=== PATIENT | female | born 1990 | race Caucasian/White ===

== ENCOUNTER 2017-02-19 15:05 | Emergency (ER) | payer BC ==
[2017-02-19 15:27] VITALS: BP 108/85
--- NOTE | 2017-02-19 16:12 | UC ---
Lower Extremity/Ankle HPI - HPI Summary HPI Summary: complaint of pain in left leg-thigh that started last night got up this morning and pain is still in her thigh feels like a staabbing intermittent pain pain is worsened by standing or ambulating on her leg resting lessens the pain no swelling in leg denies trauma denies back pain being evaluated by PCP- Dior Mena for burning pain in hamstrings rectum and vagina- had some testing done hasn't taken any medication for pain today went to chiropractor yesterday but negative exam denies OCP use, no recent travel - History of Current Complaint Chief Complaint: UCLowerExtremity Stated Complaint: THIGH/LEG PAIN Time Seen by Provider: 02/19/17 16:03 Hx Obtained From: Patient Hx Last Menstrual Period: 01/29/17 - Allergies/Home Medications Allergies/Adverse Reactions: Allergies Allergy/AdvReac Type Severity Reaction Status Date / Time No Known Allergies Allergy Verified 02/19/17 15:28 Home Medications: Home Medications NK [No Home Medications Reported] 02/19/17 [History Confirmed 02/19/17] PMH/Surg Hx/FS Hx/Imm Hx Previously Healthy: Yes Endocrine History Of: Denies: Diabetes, Thyroid Disease Cardiovascular History Of: Denies: Cardiac Disorders, Hypertension, Congestive Heart Failure Respiratory History Of: Denies: COPD, Asthma GI/ History Of: Denies: Ulcer - Surgical History Surgical History: Yes Surgery Procedure, Year, and Place: TONSILectomy, endoscopy - Family History Known Family History: Negative: Cardiac Disease, Hypertension, Diabetes - Social History Occupation: Employed Full-time Lives: With Family Alcohol Use: Occasionally Alcohol Amount: 2X/WEEK Substance Use Type: None Smoking Status (MU): Never Smoked Tobacco - Immunization History Most Recent Tetanus Shot: unknown Review of Systems Constitutional: Negative Skin: Negative Eyes: Negative ENT: Negative Respiratory: Negative Cardiovascular: Negative Gastrointestinal: Negative Genitourinary: Negative Motor: Negative Neurovascular: Negative Musculoskeletal: Myalgia Neurological: Negative Psychological: Negative All Other Systems Reviewed And Are Negative: Yes Physical Exam Triage Information Reviewed: Yes Appearance: No Pain Distress, Well-Nourished Vital Signs: Initial Vital Signs Temp 98.1 F 02/19/17 15:21 Pulse 75 02/19/17 15:21 Resp 18 02/19/17 15:21 BP 108/85 02/19/17 15:21 Pulse Ox 100 02/19/17 15:21 Vital Signs Reviewed: Yes Eyes: Positive: Conjunctiva Clear ENT: Positive: Normal ENT inspection Neck: Positive: Supple Respiratory: Positive: Lungs clear, Normal breath sounds, No respiratory distress Cardiovascular: Positive: RRR, No Murmur Abdomen Description: Positive: Nontender, Soft Bowel Sounds: Positive: Present Musculoskeletal: Positive: Other: - LLE- thighs with equal muscle tone - right leg tenderness with palpiation of adductor longus, no edema erythema or ecchymosis pulses in legs normal no swelling in calves Neurological: Positive: Alert Psychological Exam: Normal Skin Exam: Normal Lower Extremity Course/Dx - Course Course Of Treatment: exam completed. seem to be muscular in nature- will recommend NSAIDS and followup with PCP for continued evaluation. Wells criteria score for DVT -zero - Differential Dx/Diagnosis Differential Diagnosis/HQI/PQRI: DVT, Sprain, Strain Provider Diagnoses: musculoskeletal pain left leg Discharge - Discharge Plan Condition: Stable Disposition: HOME Patient Education Materials: Leg Pain (ED) Referrals: Shawn Brewer MD [Primary Care Provider] - Additional Instructions: Increase fluids and rest Take ibuprofen for pain Please call your primary care provider so their evaluation of your current condition can continue Please review your discharge instructions. If your symptoms do not improve please call your primary care provider or return to urgent care
== END 2017-02-19 16:47 | disposition home or self-care (01) ==
LOC: UCEAST 15:05
DX: M79.1 Myalgia (principal)
CPT/HCPCS: 99211; G0463

== ENCOUNTER 2019-03-16 08:59 | Emergency (ER) | payer BC ==
[2019-03-16 09:32] VITALS: BP 105/63
--- NOTE | 2019-03-16 09:57 | UC ---
UC General HPI - HPI Summary HPI Summary: Pleasant 29 yo female c/o sore, uncomfortable feeling deep in throat R>L. Did have uri with cough a couple weeks ago, this resolved. No recent fever / chills. No rash. No GI issues. No rash. Notes tender bump area on Left ant throat. - History of Current Complaint Chief Complaint: UCGeneralIllness Stated Complaint: SORE THROAT Time Seen by Provider: 03/16/19 09:52 Hx Obtained From: Patient Hx Last Menstrual Period: 02/24/19 Pain Intensity: 0 - Allergy/Home Medications Allergies/Adverse Reactions: Allergies Allergy/AdvReac Type Severity Reaction Status Date / Time latex AdvReac Mild BURNING Verified 03/16/19 09:26 RASH PMH/Surg Hx/FS Hx/Imm Hx Previously Healthy: Yes - Surgical History Surgical History: Yes Surgery Procedure, Year, and Place: TONSILECTOMY. colonscopy/ endoscopy - Family History Known Family History: Negative: Cardiac Disease, Hypertension, Diabetes - Social History Alcohol Use: Occasionally Alcohol Amount: 2X/WEEK Substance Use Type: None Smoking Status (MU): Never Smoked Tobacco - Immunization History Most Recent Tetanus Shot: unknown Review of Systems All Other Systems Reviewed And Are Negative: Yes Constitutional: Positive: Negative Skin: Positive: Negative Eyes: Positive: Negative ENT: Positive: Other - see hpi Respiratory: Positive: Other - see hpi Cardiovascular: Positive: Negative Gastrointestinal: Positive: Negative Genitourinary: Positive: Negative Motor: Positive: Negative Neurovascular: Positive: Negative Musculoskeletal: Positive: Negative Neurological: Positive: Negative Psychological: Positive: Negative Is Patient Immunocompromised?: No Physical Exam Triage Information Reviewed: Yes Appearance: Well-Appearing, Well-Nourished Vital Signs: Initial Vital Signs Temp 98.7 F 03/16/19 09:26 Pulse 72 03/16/19 09:26 Resp 16 03/16/19 09:26 BP 105/63 03/16/19 09:26 Pulse Ox 100 03/16/19 09:26 Vital Signs Reviewed: Yes Eye Exam: Normal ENT: Positive: Pharyngeal erythema Neck: Positive: Supple, Nontender, Other: - + L ant cervical lymphadenopathy, tender. + R ant cervical lymphadenopathy, a little higher up than contralateral left. Minimally tender. Trachea midline, uvula midline. Throat post red, irritated. No ousmane sores / exudates. Uvula ok, midline. Respiratory Exam: Normal Respiratory: Positive: Chest non-tender, Lungs clear, Normal breath sounds, No respiratory distress, No accessory muscle use Cardiovascular Exam: Normal Cardiovascular: Positive: RRR, No Murmur, Pulses Normal, Brisk Capillary Refill Abdominal Exam: Normal Abdomen Description: Positive: Nontender Musculoskeletal Exam: Normal Neurological Exam: Normal - grossly nonfocal Psychological Exam: Normal Skin Exam: Normal - no visible or reported rash. nondiaphoretic. Course/Dx - Course Course Of Treatment: Seen by outying Urgent care last week - reports that strep was negative. Will check throat culture. Also blood work. Thinks has had mononucleosis in the past, but will check ( reactivation?). F/U Dr. Swanson this week. Coa / tx plan reviewed. Questions answered as posed to the best of my ability. - Diagnoses Provider Diagnosis: Sore throat, Adenopathy Discharge - Sign-Out/Discharge Documenting (check all that apply): Patient Departure All imaging exams completed and their final reports reviewed: No Studies - Discharge Plan Disposition: HOME Patient Education Materials: Pharyngitis (ED), Lymphadenopathy (ED) Forms: *Work Release Referrals: Edward Swanson MD [Primary Care Provider] - Additional Instructions: Follow up with Dr. Swanson this week. Seek medical attention for worse or new problems in the meantime. - Billing Disposition and Condition Disposition: Home
[2019-03-16 16:14] LABS: ABS Basophils 0 10^3/ul (0-0.2); ABS Eosinophils 0.1 10^3/ul (0-0.6); ABS Lymphocytes 1.6 10^3/ul (1.0-4.8); ABS Monocytes 0.4 10^3/ul (0-0.8); ABS Neutrophils 3.4 10^3/ul (1.5-7.7); ABS Nucleated RBC 0 10^3/ul; Eosinophil % 2.2 %; Hematocrit 42 % (33-41); Hemoglobin 13.9 g/dL (12.0-16.0); Lymphocyte % 29.3 %; Mean Corpuscular HGB Conc 33 g/dL (31-36); Mean Corpuscular Hemoglobin 30 pg (27-31); Mean Corpuscular Volume 90 fL (80-97); Nucleated Red Blood Cells % 0.1; Platelet Count 238 10^3/uL (150-450); Red Blood Count 4.64 10^6 /uL (3.70-4.87); Red Cell Distribution Width 13 % (10.5-15); White Blood Count 5.6 10^3/uL (3.5-10.8)
[2019-03-16 16:26] LABS: Albumin 4.5 g/dL (3.2-5.2); Calcium 9.5 mg/dL (8.6-10.3); Potassium 4.8 mmol/L (3.5-5.0); Total Bilirubin 0.5 mg/dL (0.2-1.0)
[2019-03-16 16:32] LABS: Albumin/Globulin Ratio 1.8 (1-3); BUN/Creatinine Ratio 15.2 (8-20); C Reactive Protein 1.38 mg/L (<8.01); EGFR African American 103.4 (>60); EGFR Non-African American 85.5 (>60); Globulin 2.5 g/dL (2-4)
[2019-03-18 15:44] LABS: EBV Capsid Ag IgG Ab Positive (Negative); EBV Capsid Ag IgM Ab Positive (Negative); Epstein-Barr Nuclear Antigen Positive (Negative)
== END 2019-03-16 10:56 | disposition home or self-care (01) ==
LOC: UCEAST 08:59
DX: J02.9 Acute pharyngitis, unspecified (principal); R59.0 Localized enlarged lymph nodes; Z91.040 Latex allergy status
CPT/HCPCS: 36415; 80053; 85025; 86140; 86308; 86664; 86665; 87070; 99211; G0463

== ENCOUNTER 2022-01-18 13:17 | Inpatient (IN) ==
[2022-01-18] MEDS ORDERED: Immune Globulin IV Order (CPOE ENTRY PROTOCOL) IV SCH (18:00)
[2022-01-18 18:06] LABS: Body Fluid Source Cerebral Spinal
[2022-01-18 18:10] LABS: Body Fluid Appearance Clear; Body Fluid Color Colorless
[2022-01-18 18:10] LABS: Hematocrit 47 % (35-47); Hemoglobin 15.3 g/dL (12.0-16.0); Mean Corpuscular HGB Conc 33 g/dL (31-36); Mean Corpuscular Hemoglobin 29 pg (27-31); Mean Corpuscular Volume 89 fL (80-97); Mean Platelet Volume 8.6 fL (7.4-10.4); Platelet Count 339 10^3/uL (150-450); Red Blood Count 5.27 10^6 /uL (3.70-4.87); Red Cell Distribution Width 13 % (10-15); White Blood Count 8.4 10^3/uL (3.5-10.8)
[2022-01-18 18:12] LABS: CSF Tube # 4
[2022-01-18 18:18] LABS: CSF Glucose 53 mg/dL (40-70)
[2022-01-18 18:22] LABS: ALT 21 U/L (7-52); AST 15 U/L (13-39); Albumin 4.8 g/dL (3.2-5.2); Albumin/Globulin Ratio 1.5 (1-3); Alkaline Phosphatase 51 U/L (35-149); Anion Gap 8 mmol/L (2-11); Blood Urea Nitrogen 15 mg/dL (6-24); C Reactive Protein < 1.00 mg/L (<8.01); CO2 Carbon Dioxide 28 mmol/L (22-32); Calcium 9.8 mg/dL (8.6-10.3); Chloride 100 mmol/L (101-111); Globulin 3.1 g/dL (2-4); Glucose 93 mg/dL (70-100); Potassium 3.9 mmol/L (3.5-5.0); Sodium 136 mmol/L (135-145); Total Protein 7.9 g/dL (6.4-8.9); eGFR CKD-EPI 95.4 (>60)
[2022-01-18] MEDS ORDERED: Ondansetron 4 mg VIAL 2 MG/ML 2 ml VIAL IV PRN (18:25)
[2022-01-18 18:35] LABS: Body Fluid WBC 2 /mcL
[2022-01-18] MEDS ORDERED: Gadoteridol (CONTRAST) 279.3 MG/ML 10 ML IV ONE (18:55)
[2022-01-18 19:03] LABS: Body Fluid Mono 17 %; Body Fluid Total Cells Counted 42
[2022-01-18] MEDS: PRIVIGEN IV SCH (19:40)
[2022-01-18] MEDS: IMMUNE GLOB IV SCH (19:40)
[2022-01-18] MEDS: Enoxaparin 40 MG/0.4 ML SYR SUBCUT SCH (20:57)
[2022-01-18 21:02] LABS: Erythrocyte Sed Rate 2 mm/Hr (0-19)
[2022-01-18 21:09] LABS: HIV 4th Generation Nonreactive (Nonreactive)
[2022-01-19] MEDS: Lidocaine PATCH 5% PATCH TRANSDERM SCH ×2 (03:57→11:15)
[2022-01-19] MEDS: PRIVIGEN IV SCH (18:37)
[2022-01-19] MEDS: IMMUNE GLOB IV SCH (18:37)
[2022-01-19] MEDS: Enoxaparin 40 MG/0.4 ML SYR SUBCUT SCH (20:28)
[2022-01-19] MEDS: Lidocaine Patch REMOVE NOTE PATCH OFF SCH (20:29)
[2022-01-20 05:49] LABS: ABS Eosinophils 0.1 10^3/ul (0-0.6); ABS Lymphocytes 1.6 10^3/ul (1.0-4.8); ABS Monocytes 0.4 10^3/ul (0-0.8); ABS Neutrophils 1.3 10^3/ul (1.5-7.7); Eosinophil % 2.2 %; Hematocrit 39 % (35-47); Hemoglobin 13.3 g/dL (12.0-16.0); Lymphocyte % 46.2 %; Mean Corpuscular HGB Conc 34 g/dL (31-36); Mean Corpuscular Hemoglobin 30 pg (27-31); Mean Corpuscular Volume 88 fL (80-97); Mean Platelet Volume 8.7 fL (7.4-10.4); Nucleated Red Blood Cells % 0.1; Platelet Count 240 10^3/uL (150-450); Red Blood Count 4.41 10^6 /uL (3.70-4.87); Red Cell Distribution Width 13 % (10-15); White Blood Count 3.4 10^3/uL (3.5-10.8)
[2022-01-20 06:09] LABS: eGFR CKD-EPI 115.1 (>60)
[2022-01-20] MEDS: Polyethylene Glycol 3350 17 GM PACKET PO PRN (08:15)
[2022-01-20] MEDS: Senna TAB 8.6 mg TAB PO PRN (08:15)
[2022-01-20] MEDS: Lidocaine PATCH 5% PATCH TRANSDERM SCH (08:26)
[2022-01-20] MEDS ORDERED: PRIVIGEN IV SCH (18:00)
[2022-01-20] MEDS ORDERED: IMMUNE GLOB IV SCH (18:00)
[2022-01-20] MEDS: Enoxaparin 40 MG/0.4 ML SYR SUBCUT SCH (20:16)
[2022-01-20] MEDS: Lidocaine Patch REMOVE NOTE PATCH OFF SCH (23:31)
[2022-01-21 06:12] LABS: ABS Eosinophils 0.1 10^3/ul (0-0.6); ABS Lymphocytes 1.1 10^3/ul (1.0-4.8); ABS Monocytes 0.5 10^3/ul (0-0.8); ABS Neutrophils 1.3 10^3/ul (1.5-7.7); Hematocrit 40 % (35-47); Hemoglobin 13.7 g/dL (12.0-16.0); Mean Corpuscular HGB Conc 34 g/dL (31-36); Mean Corpuscular Hemoglobin 31 pg (27-31); Mean Corpuscular Volume 90 fL (80-97); Mean Platelet Volume 8.5 fL (7.4-10.4); Platelet Count 251 10^3/uL (150-450); Red Blood Count 4.47 10^6 /uL (3.70-4.87); Red Cell Distribution Width 13 % (10-15)
[2022-01-21 06:26] LABS: Calcium 9.3 mg/dL (8.6-10.3); Potassium 3.8 mmol/L (3.5-5.0); eGFR CKD-EPI 111.3 (>60)
[2022-01-21] MEDS: Lidocaine PATCH 5% PATCH TRANSDERM SCH (09:09)
[2022-01-21] MEDS: Polyethylene Glycol 3350 17 GM PACKET PO PRN (09:26)
[2022-01-21 11:55] LABS: SS-A/Ro Antibody <0.2 U; SS-B/La Antibody <0.2 U
[2022-01-21] MEDS: IMMUNE GLOB IV SCH (15:07)
[2022-01-21] MEDS: PRIVIGEN IV SCH (15:07)
[2022-01-21] MEDS ORDERED: DULoxetine DR 30 mg CAP PO SCH (20:00)
[2022-01-21] MEDS: Enoxaparin 40 MG/0.4 ML SYR SUBCUT SCH (20:40)
[2022-01-21] MEDS: Al Hydrox/Mg Hydrox/Simet LIQ 30 ML UDC PO PRN (22:33)
[2022-01-22] MEDS ORDERED: HYDROmorphone 0.5 MG/0.5 ML SYRINGE IV SLOW PU ONE (00:02)
[2022-01-22] MEDS: Lidocaine Patch REMOVE NOTE PATCH OFF SCH ×2 (00:14→21:29)
[2022-01-22 06:15] LABS: Hematocrit 38 % (35-47); Hemoglobin 12.9 g/dL (12.0-16.0); Mean Corpuscular HGB Conc 34 g/dL (31-36); Mean Corpuscular Hemoglobin 30 pg (27-31); Mean Corpuscular Volume 88 fL (80-97); Mean Platelet Volume 8.5 fL (7.4-10.4); Platelet Count 220 10^3/uL (150-450); Red Blood Count 4.33 10^6 /uL (3.70-4.87); Red Cell Distribution Width 13 % (10-15)
[2022-01-22 06:30] LABS: Calcium 8.9 mg/dL (8.6-10.3); Potassium 4.3 mmol/L (3.5-5.0); eGFR CKD-EPI 120.5 (>60)
[2022-01-22 09:34] LABS: ABS Eosinophils 0.1 10^3/ul (0-0.6); ABS Lymphocytes 0.7 10^3/ul (1.0-4.8); ABS Monocytes 0.5 10^3/ul (0-0.8); ABS Neutrophils 0.8 10^3/ul (1.5-7.7); Eosinophil % 2.5 %; Lymphocyte % 34.3 %; Nucleated Red Blood Cells % 0.3
[2022-01-22] MEDS: Lidocaine PATCH 5% PATCH TRANSDERM SCH (09:41)
[2022-01-22] MEDS: PRIVIGEN IV SCH (10:46)
[2022-01-22] MEDS: IMMUNE GLOB IV SCH (10:46)
[2022-01-22] MEDS: Polyethylene Glycol 3350 17 GM PACKET PO PRN (15:32)
[2022-01-22] MEDS: Senna TAB 8.6 mg TAB PO PRN (21:15)
[2022-01-22] MEDS: Enoxaparin 40 MG/0.4 ML SYR SUBCUT SCH (21:15)
[2022-01-23 00:10] LABS: IgG Immunoblot Negative (Negative); IgM Immunoblot Negative (Negative)
[2022-01-23 06:14] LABS: Hematocrit 38 % (35-47); Hemoglobin 12.9 g/dL (12.0-16.0); Mean Corpuscular HGB Conc 34 g/dL (31-36); Mean Corpuscular Hemoglobin 30 pg (27-31); Mean Corpuscular Volume 89 fL (80-97); Mean Platelet Volume 8.6 fL (7.4-10.4); Platelet Count 221 10^3/uL (150-450); Red Blood Count 4.26 10^6 /uL (3.70-4.87); Red Cell Distribution Width 13 % (10-15); White Blood Count 2.2 10^3/uL (3.5-10.8)
[2022-01-23 06:21] LABS: ABS Eosinophils 0.1 10^3/ul (0-0.6); ABS Monocytes 0.5 10^3/ul (0-0.8); ABS Neutrophils 0.7 10^3/ul (1.5-7.7); Eosinophil % 2.7 %; Lymphocyte % 44.2 %
[2022-01-23 06:33] LABS: eGFR CKD-EPI 118.7 (>60)
[2022-01-23] MEDS: Lidocaine PATCH 5% PATCH TRANSDERM SCH (08:59)
[2022-01-23] MEDS ORDERED: Gadoteridol (CONTRAST) 279.3 MG/ML 10 ML IV ONE (12:40)
[2022-01-23] MEDS: Dextran 70/Hypromellose Tears Eye Drops 15 ml BTL (for Artificials Tears) RIGHT EYE PRN (13:47)
[2022-01-23] MEDS: Artificial Tear OPHTH.OINT 3.5 GM RIGHT EYE PRN (13:48)
[2022-01-23] MEDS: Polyethylene Glycol 3350 17 GM PACKET PO PRN (15:38)
[2022-01-23] MEDS: Enoxaparin 40 MG/0.4 ML SYR SUBCUT SCH (20:28)
[2022-01-23] MEDS: Lidocaine Patch REMOVE NOTE PATCH OFF SCH (20:39)
[2022-01-23] MEDS ORDERED: diPHENhydraMINE IV 50 MG/ML 1 ml VIAL (BENADRYL) IV ONE ×2 (22:52→23:03)
[2022-01-23] MEDS ORDERED: Metoclopramide 5 MG/ML VIAL (10 mg) IV PRN (22:52)
[2022-01-24 06:20] LABS: Hematocrit 39 % (35-47); Hemoglobin 13.4 g/dL (12.0-16.0); Mean Corpuscular HGB Conc 34 g/dL (31-36); Mean Corpuscular Hemoglobin 30 pg (27-31); Mean Corpuscular Volume 88 fL (80-97); Mean Platelet Volume 8.7 fL (7.4-10.4); Platelet Count 234 10^3/uL (150-450); Red Blood Count 4.43 10^6 /uL (3.70-4.87); Red Cell Distribution Width 13 % (10-15); White Blood Count 2.1 10^3/uL (3.5-10.8)
[2022-01-24 06:35] LABS: Calcium 9.1 mg/dL (8.6-10.3); Potassium 3.9 mmol/L (3.5-5.0); eGFR CKD-EPI 121.5 (>60)
[2022-01-24 07:45] LABS: ABS Monocytes 0.4 10^3/ul (0-0.8); ABS Neutrophils 0.6 10^3/ul (1.5-7.7); Eosinophil % 1.4 %; Lymphocyte % 47.2 %; Nucleated Red Blood Cells % 0.1
[2022-01-24] MEDS ORDERED: HYDROcodone/ACETAMIN 5/325 mg TAB PO PRN (09:42)
[2022-01-24] MEDS: Lidocaine PATCH 5% PATCH TRANSDERM SCH (11:09)
[2022-01-24] MEDS: Dextran 70/Hypromellose Tears Eye Drops 15 ml BTL (for Artificials Tears) RIGHT EYE PRN (13:51)
[2022-01-24] MEDS: Polyethylene Glycol 3350 17 GM PACKET PO PRN (13:55)
[2022-01-24 17:45] LABS: Magnesium 1.9 mg/dL (1.9-2.7)
[2022-01-24 17:59] LABS: Troponin I 0.01 ng/mL (<0.03)
[2022-01-24 18:38] LABS: TSH Ultra Thyroid Stim Horm 1.62 mcIU/mL (0.34-5.60)
[2022-01-24] MEDS: Enoxaparin 40 MG/0.4 ML SYR SUBCUT SCH (20:32)
[2022-01-24] MEDS: Artificial Tear OPHTH.OINT 3.5 GM RIGHT EYE PRN (22:21)
[2022-01-25 06:16] LABS: Hematocrit 40 % (35-47); Hemoglobin 13.7 g/dL (12.0-16.0); Mean Corpuscular HGB Conc 34 g/dL (31-36); Mean Corpuscular Hemoglobin 30 pg (27-31); Mean Corpuscular Volume 88 fL (80-97); Platelet Count 201 10^3/uL (150-450); Red Blood Count 4.58 10^6 /uL (3.70-4.87); Red Cell Distribution Width 13 % (10-15); White Blood Count 2.6 10^3/uL (3.5-10.8)
[2022-01-25 06:30] LABS: Calcium 9.3 mg/dL (8.6-10.3); Potassium 4.1 mmol/L (3.5-5.0)
[2022-01-25] MEDS: Polyethylene Glycol 3350 17 GM PACKET PO PRN (07:44)
[2022-01-25] MEDS: Venlafaxine XR 75 mg PO SCH (07:45)
[2022-01-25] MEDS: Lidocaine PATCH 5% PATCH TRANSDERM SCH (07:46)
[2022-01-25 07:58] LABS: ABS Eosinophils 0.1 10^3/ul (0-0.6); ABS Lymphocytes 1.6 10^3/ul (1.0-4.8); ABS Monocytes 0.5 10^3/ul (0-0.8); ABS Neutrophils 0.4 10^3/ul (1.5-7.7); Eosinophil % 2.9 %
[2022-01-25] MEDS: Cefepime 2 GM in Dextrose 2 GM/50 ML BAG IV SCH ×2 (16:28→21:30)
[2022-01-25 17:11] LABS: Urine Appearance Cloudy; Urine Bilirubin Negative (Negative); Urine Blood 2+ (Negative); Urine Color Yellow; Urine Glucose Negative (Negative); Urine Ketones Negative (Negative); Urine Nitrite Negative (Negative); Urine Protein Negative (Negative); Urine Specific Gravity 1.013 (1.002-1.030); Urine Urobilinogen Negative (Negative)
[2022-01-25 17:13] LABS: Urine Bacteria Absent (Absent); Urine Red Blood Cell Absent (Absent); Urine Squamous Epithelial Cell Present (Absent); Urine White Blood Cell Absent (Absent)
[2022-01-25 18:07] LABS: Rapid Strep Molecular Negative (Negative)
[2022-01-25] MEDS: Enoxaparin 40 MG/0.4 ML SYR SUBCUT SCH (21:30)
[2022-01-25] MEDS: Artificial Tear OPHTH.OINT 3.5 GM RIGHT EYE PRN (22:59)
[2022-01-26 06:06] LABS: ABS Eosinophils 0.1 10^3/ul (0-0.6); ABS Lymphocytes 1.3 10^3/ul (1.0-4.8); ABS Monocytes 1.1 10^3/ul (0-0.8); ABS Neutrophils 12.2 10^3/ul (1.5-7.7); Eosinophil % 0.4 %; Hematocrit 40 % (35-47); Hemoglobin 13.4 g/dL (12.0-16.0); Lymphocyte % 8.6 %; Mean Corpuscular HGB Conc 34 g/dL (31-36); Mean Corpuscular Hemoglobin 30 pg (27-31); Mean Corpuscular Volume 88 fL (80-97); Mean Platelet Volume 8.6 fL (7.4-10.4); Platelet Count 204 10^3/uL (150-450); Red Blood Count 4.51 10^6 /uL (3.70-4.87); Red Cell Distribution Width 13 % (10-15); White Blood Count 14.7 10^3/uL (3.5-10.8)
[2022-01-26] MEDS: Cefepime 2 GM in Dextrose 2 GM/50 ML BAG IV SCH ×3 (06:06→21:21)
[2022-01-26 06:29] LABS: Calcium 9.3 mg/dL (8.6-10.3); Potassium 4.1 mmol/L (3.5-5.0); eGFR CKD-EPI 118.7 (>60)
[2022-01-26] MEDS: Venlafaxine XR 75 mg PO SCH (07:56)
[2022-01-26] MEDS: Lidocaine PATCH 5% PATCH TRANSDERM SCH (07:57)
[2022-01-26 11:15] LABS: Magnesium 1.9 mg/dL (1.9-2.7); Phosphorus 4.7 mg/dL (2.5-5.0)
[2022-01-26] MEDS: Enoxaparin 40 MG/0.4 ML SYR SUBCUT SCH (21:20)
[2022-01-26] MEDS: Dextran 70/Hypromellose Tears Eye Drops 15 ml BTL (for Artificials Tears) RIGHT EYE PRN (21:26)
[2022-01-26] MEDS: Artificial Tear OPHTH.OINT 3.5 GM RIGHT EYE PRN (21:26)
[2022-01-27] MEDS: Cefepime 2 GM in Dextrose 2 GM/50 ML BAG IV SCH ×3 (05:34→21:08)
[2022-01-27 07:08] LABS: ABS Basophils 0.1 10^3/ul (0-0.2); ABS Eosinophils 0.1 10^3/ul (0-0.6); ABS Lymphocytes 1.8 10^3/ul (1.0-4.8); ABS Monocytes 0.8 10^3/ul (0-0.8); ABS Neutrophils 9.3 10^3/ul (1.5-7.7); Eosinophil % 1.1 %; Hematocrit 38 % (35-47); Mean Corpuscular HGB Conc 34 g/dL (31-36); Mean Corpuscular Hemoglobin 30 pg (27-31); Mean Corpuscular Volume 88 fL (80-97); Mean Platelet Volume 8.5 fL (7.4-10.4); Platelet Count 199 10^3/uL (150-450); Red Blood Count 4.31 10^6 /uL (3.70-4.87); Red Cell Distribution Width 13 % (10-15)
[2022-01-27] MEDS: Venlafaxine XR 75 mg PO SCH (07:58)
[2022-01-27] MEDS: Lidocaine PATCH 5% PATCH TRANSDERM SCH (08:00)
[2022-01-27] MEDS: Enoxaparin 40 MG/0.4 ML SYR SUBCUT SCH (21:07)
[2022-01-27] MEDS: Al Hydrox/Mg Hydrox/Simet LIQ 30 ML UDC PO PRN (21:14)
[2022-01-28 05:11] LABS: ABS Eosinophils 0.2 10^3/ul (0-0.6); ABS Lymphocytes 2.4 10^3/ul (1.0-4.8); ABS Monocytes 0.6 10^3/ul (0-0.8); ABS Neutrophils 3.7 10^3/ul (1.5-7.7); Eosinophil % 2.4 %; Hematocrit 37 % (35-47); Hemoglobin 12.7 g/dL (12.0-16.0); Lymphocyte % 34.8 %; Mean Corpuscular HGB Conc 34 g/dL (31-36); Mean Corpuscular Hemoglobin 30 pg (27-31); Mean Corpuscular Volume 88 fL (80-97); Platelet Count 200 10^3/uL (150-450); Red Blood Count 4.24 10^6 /uL (3.70-4.87); Red Cell Distribution Width 13 % (10-15); White Blood Count 6.8 10^3/uL (3.5-10.8)
[2022-01-28 05:31] LABS: Calcium 9.1 mg/dL (8.6-10.3); Magnesium 2.1 mg/dL (1.9-2.7); Potassium 4.3 mmol/L (3.5-5.0); eGFR CKD-EPI 115.1 (>60)
[2022-01-28] MEDS: Cefepime 2 GM in Dextrose 2 GM/50 ML BAG IV SCH (05:33)
[2022-01-28] MEDS: Venlafaxine XR 75 mg PO SCH (08:51)
[2022-01-28 15:11] VITALS: BP 118/79
== END 2022-01-28 14:53 | disposition home or self-care (01) | DRG 95 ==
LOC: ED 13:17 → SUATTDRO 18:38 → EDHOLD 18:38 → MEDTELE 22:45
PROVIDERS: ADMIT Hospitalist; ATTEND Internal Medicine